=== PATIENT | male | born 1985 | race Caucasian/White ===

== ENCOUNTER 2021-01-13 16:08 | Outpatient (REF) | payer MEDICAID, SELFPAY ==
[2021-01-14 11:30] LABS: SARS COV2 PCR INHOUSE NEGATIVE (Negative)
== END 2021-01-13 16:09 | disposition home or self-care (01) ==
LOC: HO.LAB 16:08
PROVIDERS: Visit Provider Internal Medicine
DX: Z20.822 Contact with and (suspected) exposure to COVID-19 (principal)
CPT/HCPCS: C9803; U0003

== ENCOUNTER 2022-06-27 09:43 | Outpatient (REF) | payer MEDICAID, SELFPAY ==
[2022-06-27 10:07] LABS: COVID-19 Test Positive (Negative); IDNOW Serial# 16C4AD1C
== END 2022-06-27 09:44 | disposition home or self-care (01) ==
LOC: HO.LAB 09:43
PROVIDERS: Visit Provider Internal Medicine
DX: Z20.822 Contact with and (suspected) exposure to COVID-19 (principal)
CPT/HCPCS: 87635; C9803

== ENCOUNTER 2022-09-21 11:12 | Emergency (ER) | payer OTHER, MEDICAID, SELFPAY ==
[2022-09-21 11:43] VITALS: BP 107/37; PULSE 78; RESP 20; TEMP 37.2; O2SAT 99; BMI 21.6
--- NOTE | 2022-09-21 11:46 | ED_ITS ---
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 No radiation of pain. No numbness, tingling or weakness in the legs. No bowel or bladder incontinence. No fevers, chills. No urinary symptoms. 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 Patient reports similar episodes in the past that have improved oral medications. Related Data Previous Rx's Medication Instructions Recorded lidocaine 5 % topical patch 1 patch topical DAILY #15 ea 09/21/22 (Lidoderm) methocarbamol 750 mg tablet 750 mg PO Q8H PRN muscle spasm #15 09/21/22 tabs naproxen 500 mg tablet 500 mg PO BID PRN pain #30 tabs 09/21/22 Allergies Allergy/AdvReac Type Severity Reaction Status Date / Time No Known Allergies Allergy Verified 09/21/22 11:52 Review of Systems Review of Systems: Yes all other systems are reviewed and are negative Constitutional: Constitutional: Reports no additional constitutional complaints, Denies body ache(s), Denies chills, Denies fever(s), Denies headache(s) and Denies weakness Eyes: Eyes: Reports no additional eye complaints and Denies change in vision ENT: Reports system reviewed and no additional complaints, except as d ocumented, Denies dizziness, Denies headache(s), Denies nasal congestion, Denies nasal discharge and Denies neck pain Cardiovascular: Cardiovascular: Reports no additional cardiovascular complaints, Denies chest pain, Denies leg edema and Denies dyspnea Respiratory: Respiratory: Reports no additional respiratory complaints, Denies cough and Denies dyspnea Gastrointestinal: Gastrointestinal: Reports no additional gastrointestinal complaints, Denies abdominal pain, Denies diarrhea, Denies nausea and Denies vomiting Genitourinary: Genitourinary: Denies urinary incontinence Musculoskeletal: Musculoskeletal: Reports no additional musculoskeletal complaints, Reports back pain, Denies arthralgias, Denies joint swelling, Denies neck pain, Denies numbness and Denies tingling Integumentary/Breasts: Skin/Breast: Reports system reviewed and no additional complaints, except as docu and Denies rash Neurologic: Reports system reviewed and no additional complaints, except as documented, Denies Abnormal speech present, Denies dizziness, Denies hea dache(s), Denies numbness, Denies tingling and Denies weakness PMFSH Past Medical History Attestation statement: The following information was validated with the patient. Source: old records reviewed and nursing notes reviewed Social History Social History Advance Directives: No Advance Directives Information Provided: No Physical Exam Vital Signs: Vital Signs: Last Vital Signs Temp 99.0 F 09/21/22 11:43 Pulse 78 09/21/22 11:43 Resp 20 09/21/22 11:43 BP 107/37 L 09/21/22 11:43 Pulse Ox 99 09/21/22 11:43 O2 Del Method 09/21/22 11:43 BMI result Body Mass Index 21.6 Const: General: cooperative, healthy appearing, comfortable and no acute distress Orientation/consciousness: patient oriented x3 Limitations: no limitations HEENT: Head: Yes normal to inspection Ears: hearing grossly normal bilaterally General nose exam: Normal external nose present Face and sinus: Yes normal facial exam Mouth: Normal oral and palatal mucosa present Throat: Yes posterior oropharynx normal Eyes: General: appearance normal, both eyes and all related structures P upils: Equal, round and reactive pupils present Neck: Neck: Yes normal visual inspection Chest: Chest palpation & inspection: normal inspection of the chest Resp: Effort & Inspection: normal respiratory effort Auscultation: clear to auscultation bilaterally Cardio: Rate: regular rate Rhythm: regular rhythm Peripheral pulses: Peripheral pulses 2+ throughout GI: Inspection: Yes normal to inspection Palpation (GI): Soft to palpation and nontender Auscultation: normal bowel sounds : General: Yes no CVA tenderness Back/Spine/Pelvis: Other: Over the right lumbar soft tissue there is tenderness. There is no midline tenderness, step-offs deformities. Pain is worsened with flexion extension of the lumbar spine. Back: no CVA tenderness Thoracic/Lumbar Spine: thoracic and lumbar spine normal to inspection Skin: General skin exam: no rashes or lesions noted Neuro: General: patient oriented x3, no focal motor deficits and normal sensation to monofilament Cranial nerves: Yes CN's II-XII intact bilaterally, Yes Equal, round and reactive pupils present, Yes Bilaterally intact EOM present, Yes Nystagmus not present, Yes Normal facial strength present and Yes Midline tongue present Cognition (Neuro): normal cognition Speech: No Abnormal speech present Gait exam (Neuro): Normal gait present Motor exam (neuro): 5/5 motor strength present throughout Sensory Exam: Normal double simultaneous stimulation for sensation Deep tendon reflexes (DTR's): Right patellar reflex intensity grade: 2+ and Left patellar reflex intensity grade: 2+ Extrem: General: Yes normal to inspection Medical Decision Making Medical Decision Making MDM Narrative: 36-year-old male here with acute on chronic right lower back pain for the last 24 hours which started after patient was doing some unloading of heavy boxes while working. No neurological deficits or red flag symptoms. Patient has no midline tenderness. Likely musculoskeletal. Patient will be discharged home on anti-inflammatory, muscle relaxant medicated patch. Low concern for epidural abscess/cauda equina, cord compression-with no focal neurological complaints, no history of immunocompromise state, IV drug abuse Reviewed worrisome signs and symptoms of when to return to the emergency room. Comfortable plan for discharge home. Discharge Plan Discharge Clinical Impression: Lumbar spine strain Patient Disposition: Home, Self-Care Instructions: Low Back Strain (ED) Additional Instructions: radiograf?a no muestra fractura. Aplique calor o hielo en el ?lynn afectada. Estiramiento suave. Sin levantar objetos pesados ??ni agacharse. Leonidas los medicamentos seg?n lo prescrito. Regreso por incontinencia de orina o heces, debilidad en las extremidades, fiebre Prescriptions: New naproxen 500 mg tablet 500 mg PO BID PRN (Reason: pain) Qty: 30 0RF lidocaine [Lidoderm] 5 % adhesive patch,medicated 1 patch topical DAILY Qty: 15 0RF Rx Instructions: leave on most painful area for up to 12 hrs methocarbamol 750 mg tablet 750 mg PO Q8H PRN (Reason: muscle spasm) Qty: 15 0RF Referrals: Physician,None [Physician] - Stand Alone Forms: Work/School Release Interventions: ED Discharge Assessment Last Done: 09/21/22 12:12 Discharge Date/Time: 09/21/22 12:12 Print Language: Stateless
== END 2022-09-21 12:12 | disposition home or self-care (01) ==
LOC: HO.ED 12:11
PROVIDERS: Emergency Provider Emergency Medicine
DX: S39.012A Strain of muscle, fascia and tendon of lower back, initial encounter (principal); X50.0XXA Overexertion from strenuous movement or load, initial encounter; Y93.9 Activity, unspecified; Y92.9 Unspecified place or not applicable; Y99.0 Civilian activity done for income or pay
CPT/HCPCS: 99282; 99283